=== PATIENT | male | born 1995 | race Caucasian/White ===

== ENCOUNTER 2024-04-15 11:24 | Emergency (ER) | payer OTHER ==
[~2024-04-15] VITALS: Ht 188 cm; Wt 87.0 kg
[2024-04-15 11:29] VITALS: BP 156/100; PULSE 74; TEMP 98.2; O2SAT 100
[2024-04-15] MEDS ORDERED: DOXY-456 MT (11:53)
[2024-04-15] MEDS ORDERED: METR-167 MT (11:53)
[2024-04-15] MEDS ORDERED: BO1 TP (11:53)
[2024-04-15 12:30] VITALS: RESP 17
[2024-04-15] MEDS: BACITRACIN ZINC OINT UDPKT TOP ONE (12:45)
[2024-04-15] MEDS: TETANUS, DIPHTHERIA, PERTUSSIS VAC/PF 0.5ML (>10YR OLD) IM ONE (12:45)
== END 2024-04-15 12:30 | disposition home or self-care (01) ==
LOC: ER 11:33
DX: S60.511A Abrasion of right hand, initial encounter (principal); S61.451A Open bite of right hand, initial encounter; J45.909 Unspecified asthma, uncomplicated; Z88.0 Allergy status to penicillin; W54.0XXA Bitten by dog, initial encounter; Y93.89 Activity, other specified; Y92.89 Other specified places as the place of occurrence of the external cause; Y99.8 Other external cause status
CPT/HCPCS: 90471; 90715; 99283